=== PATIENT | male | born 1965 | race Caucasian/White ===

== ENCOUNTER → 2017-05-06 | Outpatient (CLI) | payer OTHER | END | disposition home or self-care (01) | LOC: RAD 14:26 | PROVIDERS: ATTEND Internal Medicine | DX: R51 Headache (principal); R42 Dizziness and giddiness | CPT/HCPCS: 70450 ==

== ENCOUNTER 2017-05-07 11:23 | Emergency (ER) | payer OTHER ==
[~2017-05-07] VITALS: Ht 190.5 cm; Wt 78.5 kg
[2017-05-07] MEDS ORDERED: DIPHENHYDRAMINE 50 MG/ML, 1ML IVPush ONE (12:00)
[2017-05-07] MEDS ORDERED: SODIUM CHLORIDE 0.9% 1,000ML IVBOLUS ONE (12:00)
[2017-05-07] MEDS ORDERED: SODIUM CHLORIDE FLUSH 10ML SYR IVF ONE (12:00)
[2017-05-07] MEDS ORDERED: METOCLOPRAMIDE 5 MG/ML, 2ML IVPush ONE (12:00)
[2017-05-07] MEDS ORDERED: METOCLOPRAMIDE 5 MG/ML, 2ML ONE (12:13)
[2017-05-07] MEDS ORDERED: DIPHENHYDRAMINE 50 MG/ML, 1ML ONE (12:14)
[2017-05-07 12:24] VITALS: BP 129/56
== END 2017-05-07 13:41 | disposition home or self-care (01) ==
LOC: ED 13:09
DX: G43.911 Migraine, unspecified, intractable, with status migrainosus (principal); Z87.891 Personal history of nicotine dependence
CPT/HCPCS: 96361; 96374; 96375; 99284; J1200; J2765; J7030